=== PATIENT | female | born 1930 | race Asian ===

== ENCOUNTER → 2016-07-30 | Outpatient (CLI) | payer MEDICARE, OTHER ==
[~2016-07-30] MED LIST: AMBIEN10 MG PO; ASPIRIN81 M1; DICLOFENAC PO; LANOXIN PO; LOPRESSOR PO; NAPROXEN PO; NORVASC2.5 MG PO; PRILOSEC PO; ROBITUSSIN-DM118 M1; SINGULAIR PO; TYLENOL325 M1
--- NOTE | ~2016-07-30 | CR63 ---
[facility] A Service of [facility] RADIOLOGY TEXT RESULTS PATIENT: MASOUD LANZA [id number] : [birth year] UNIT #: [id number] AGE: [address]: Gloria Lanza MD SEX: F ORDER DR: [id number] [facility] [address] [place], [place] [address] [id number] O MR#: [id number] Acc #: [id number] NAME: MASOUD LANZA : 1930 SEX: F STUDY DATE/TIME: 07/30/2016 UNIT: [facility] ROOM: STUDY DESCRIPTION: CR Chest 2 View Attending Physician: Gloria Lanza M.D. Referring Physician: Gloria Lanza M.D. Ordering Physician: Gloria Lanza M.D. Primary Care Physician: Gloria Lanza M.D. MEDICAL IMAGING REPORT This report is preliminary unless electronic signature is present EXAM Chest 2 views 07/30/2016 1215 hours HISTORY 85-year-old woman with shortness of air, cough and weight loss for 1 week. Diagnosis of acute bronchitis. COMPARISON 07/18/2009 FINDINGS Upright PA and lateral views of the chest demonstrate mild cardiomegaly, unchanged. There is a tortuous atherosclerotic aorta unchanged. The lungs are hyperinflated, but clear of acute density. There is no pleural effusion. IMPRESSION Stable pulmonary hyperinflation. No evidence of pneumonia, edema or effusion. No change from 07/18/2009. Dictated by... Risa Camacho M.D. THIS IS AN ELECTRONICALLY VERIFIED REPORT Risa Camacho M.D. at 08/02/2016 9:01 AM [email or web address] TD: 07/30/2016 17:26 JOB #: [id number] MEDICAL IMAGING REPORT [facility] A Service of [facility] RADIOLOGY TEXT RESULTS PATIENT: MASOUD LANZA LOCATION: [facility] #: [id number] : 30 UNIT #: [id number] AGE: [address]: Gloria Lanza MD SEX: F ORDER DR: Page 1 of 1 COPY
== END | disposition home or self-care (01) ==
LOC: CRAD 11:37
DX: J20.9 Acute bronchitis, unspecified (principal); R91.8 Other nonspecific abnormal finding of lung field
CPT/HCPCS: 71020